=== PATIENT | female | born 1980 | race Caucasian/White ===

== ENCOUNTER → 2020-10-04 | Outpatient (CLI) | payer OTHER, MEDICAID ==
[~2020-10-04] MED LIST: PREDNISONE50 MG PO; PROMETHAZINE-C120 ML
== END ==
LOC: M.LAB 09:28
PROVIDERS: ATTEND Orthopaedic Surgery
DX: Z01.812 Encounter for preprocedural laboratory examination (principal); Z20.822 Contact with and (suspected) exposure to COVID-19